=== PATIENT | male | born 1935 | race Caucasian/White ===

== ENCOUNTER → 2017-06-29 | Outpatient (CLI) | payer MEDICARE ==
[~2017-06-29] MED LIST: ADVA250A INH; ALBUAER3 INH; ASPI325T PO; CHLO.12%30 SWISH-SPIT; CLOB-23 TOPICAL; CLON0.5T PO; FLUO0.0122 EACH EAR; HYDR-3516 PO; MECL-62 PO; META48.53 PO; MODU550 PO; MONT10TA2 PO; NAPR500T PO; NITR0.4S SL; PRIL20TA2 PO; SIMV20TA PO; TAMS0.4C4 PO; VERA1TAB17 PO
[2017-06-29 11:04] LABS: BLOOD, URINE NEG (NEG); GLUCOSE,URINE NEG (NEG); KETONE, URINE NEG (NEG); NITRITE,URINE NEG (NEG); URINE COLOR YELLOW (YELLW/STRAW)
[2017-06-29 11:06] LABS: AUTOMATED NEUTROPHIL # 5.6 TH/MM3 (1.8-7.7); BASOPHIL # 0.1 TH/MM3 (0-0.2); BASOPHIL % 0.7 % (0.0-2.0); EOSINOPHIL # 0.1 TH/MM3 (0-0.4); EOSINOPHIL % 1.1 % (0.0-4.0); HEMATOCRIT 44.1 % (39.0-51.0); HEMO FLAGS DIFF FINAL; LYMPH % 12.1 % (9.0-44.0); MEAN CELL VOLUME 91.5 FL (80.0-100.0); MEAN CORPUSCULAR HEMOGLOBIN 31.6 PG (27.0-34.0); MEAN CORPUSCULAR HGB CONC 34.6 % (32.0-36.0); MONO % 16.3 % (0.0-8.0); NEUT % 69.8 % (16.0-70.0); PLATELET COUNT 256 TH/MM3 (150-450); RED BLOOD COUNT 4.82 MIL/MM3 (4.50-5.90); RED CELL DISTRIBUTION WIDTH 13.1 % (11.6-17.2); WHITE BLOOD COUNT 8.1 TH/MM3 (4.0-11.0)
[2017-06-29 11:06] LABS: COMMENT (UR) CULT NOT INDICATED; CULTURE IF INDICATED CULT NOT INDICATED
[2017-06-29 11:11] LABS: PROTHROMBIN TIME - PATIENT 11.2 SEC (9.8-11.6)
[2017-06-29 11:30] LABS: BICARBONATE 31.8 MEQ/L (21.0-32.0); POTASSIUM 4.5 MEQ/L (3.5-5.1)
--- NOTE | 2017-06-29 12:48 | RADRPT ---
EXAM DATE/TIME: 06/29/2017 11:05 [facility] COMPARISON: No previous studies available for comparison. INDICATIONS : Evaluate for pneumonia, pneumothorax or communicable disease. Pre op right shoulder surgery. MEDICAL HISTORY : None. SURGICAL HISTORY : None. ENCOUNTER: Initial ACUITY: 1 day PAIN SCORE: 0/10 LOCATION: Bilateral chest FINDINGS: PA and lateral views of the chest demonstrate the lungs to be symmetrically aerated without evidence of mass, infiltrate or effusion. Mild elevation of the right hemidiaphragm with minimal associated at electasis. The cardiomediastinal contours are unremarkable. Osseous structures are intact. CONCLUSION: 1. Mild elevation of the right hemidiaphragm with minimal associated atelectasis. 2. No acute infiltrate or effusion. Pako Mabry Jr., MD on June 29, 2017 at 12:46 Board Certified Radiologist. This report was verified electronically.
== END ==
LOC: CPRE 09:48
PROVIDERS: ATTEND Orthopaedic Surgery
DX: Z01.812 Encounter for preprocedural laboratory examination (principal); M19.011 Primary osteoarthritis, right shoulder
CPT/HCPCS: 36415; 71020; 80048; 81001; 85025; 85610

== ENCOUNTER 2017-07-12 05:53 | Inpatient (IN) | payer MEDICARE ==
--- NOTE | 2017-07-06 12:29 | MH ---
cc: JOE NEVILLE MD DATE OF ADMISSION 07/12/2017 ADMITTING DIAGNOSIS Severe osteoarthritis of the right glenohumeral joint, a partial thickness rotator cuff tear of the right shoulder, pain right shoulder, comorbidity use including asthma, hypertension, elevated cholesterol and psoriasis. HISTORY The patient is an 82-year-old white male who has had a lengthy history of pain involving his right shoulder area. His history dates back to approximately 1955 when he was participating in baseball activities and as he was diving into [employer] base, he sustained a jamming stress to his right shoulder and the onset of pain being noted. At that time, no specific treatment was completed, but over the several month interval of time thereafter, the patient did undergo orthopedic evaluation in the [place] area and was encouraged to conform to a rehabilitation program. Approximately one year following his initial injury, he sustained a dislocation of his right shoulder secondary to football. He reports that his cheerleading coach manipulated his shoulder back into place at that time, but over the following years he experienced several recurrent dislocations of the shoulder that did result in subsequently undergoing operative intervention in 1982 as completed at [facility] in [place], [place]. The patient was uncertain with regards to the actual procedure completed at that time, but did note that no further dislocations occurred. He was doing reasonably well for number of years thereafter until the past two more years when he began to note a catching sensation about the shoulder area associated with pain that became more pronounced with the passage of time. He was taking Naprosyn as prescribed by his primary care physician and did subsequently undergo orthopedic evaluation with the undersigned physician in November 2014. At that time, his x-ray studies revealed obvious degenerative change with near [id number] apposition about the glenohumeral joint for which findings and treatment options were reviewed. The patient did not feel that he was in need of any operative intervention and thus elected to continue with conservative management being followed on an outpatient basis. He did attend a course of physical therapy that he did find to be of some benefit, although being aware of some lingering soreness about the shoulder area and thus he felt comfortable continuing with conservative modalities which included taking Naprosyn and utilizing Aspercreme or Biofreeze on a as needed basis. He returned to the office in May of this year reporting that with the passage of time he was becoming progressively more symptomatic with pain about the shoulder area. He had undergone a CT scan evaluation which identified moderate to severe glenohumeral joint osteoarthritis and a small partial thickness tear involving the anterior portion of the subscapularis tendon. The patient was having difficulty conforming to all activities of daily living because of the shoulder symptoms, especially with trying to use the toilet. He felt he had arrived at a point in time where he was ready to consider a more definitive course of treatment. Involvement of reverse shoulder arthroplasty was outlined in detail for which the patient indicated his full understanding and expressed his desire to proceed accordingly. In compliance with his wishes, he has currently been scheduled for admission in order that the above be accomplished. PAST MEDICAL HISTORY Hospitalizations and surgeries have included: 1. Umbilical herniorrhaphy 2. Surgery of his right shoulder for recurrent dislocation as described 3. Tonsillectomy 4. Colonoscopy 5. Cystoscopy 6. Some type of a thermal procedure for prostate disease 7. 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 8. He has also undergone previous hospitalization and management for osteomyelitis of his right forearm. His medical illnesses include: 1. Asthma 2. Hypertension 3. Enlarged prostate 4. Psoriasis MEDICATIONS current medications: 1. Advair discus 250/50 two puffs daily 2. Amiloride Hydrochlorothiazide 5-50 one tablet twice daily 3. Verapamil ER 240 mg daily 4. Prilosec 20.6 mg daily 5. Naproxen 500 mg twice daily 6. Tamsulosin 0.4 mg twice daily 7. Clonazepam 0.5 mg p.r.n. 8. Simvastatin 20 mg daily 9. ProAir inhaler 90 mcg two puffs p.r.n. 10. Meclizine 25 mg three times p.r.n. 11. Fluocinolone 0.01% eardrops p.r.n. 12. Clobetasol 0.05% to the scalp twice daily 13. Nitrostat 0.4 mg p.r.n. 14. Ketoconazole shampoo 2% p.r.n. 15. Chlorhexidine oral rinse p.r.n. 16. Montelukast 10 mg daily 17. Metamucil fiber one tablespoon daily 18. Flonase and Zyrtec p.r.n. ALLERGIES The patient denies any known drug allergies. He has environmental allergies to dust and mites. REVIEW OF SYSTEMS He does wear glasses. Denies headache, seizure or syncope, but has had a history of dizziness. Diminished auditory acuity for which hearing aids have been utilized. No tinnitus. No bleeding gums or dysphagia. Denies cough, shortness of breath, upper respiratory infection. There is a history of pneumonia. No angina or heart disease. He is medically managed for hypertension. His appetite is good. He does have occasional constipation for which he utilizes prune juice. No hepatitis, gallbladder disease or ulcers. There is a positive history of hemorrhoids and diverticulitis. No urinary tract infection. No kidney stones. History of benign prostatic hypertrophy, fracture of the right wrist treated by cast immobilization. No psychiatric illness. His remaining review of systems is unremarkable and noncontributory. FAMILY HISTORY 58 years, is 79 years of age and described as being in good health. One son and one daughter indicated to be in good health. Family history is positive for hypertension, diabetes, heart disease, lung and colon cancer. SOCIAL HISTORY The patient has been retired for over 17 years having worked as a [employer]. He completed a BS college degree. Denies active use of tobacco and ethanol. PHYSICAL EXAMINATION Height 5 feet 8 inches, weight 211 pounds. GENERAL: An alert, oriented and responsive 82-year-old white male who sits quietly upon examination table with no obvious distress. HEAD, EYES, EARS, NOSE, AND THROAT: Pupils are equally round and reactive to light. Extraocular movements full. Sclerae clear. External nares clear. External auditory canals clear. Dental intact. Mucous membranes pink and moist. Pharynx clear. NECK: Supple. There is an active range of motion with mild discomfort at the extremes of mobility indicated to be chronic in nature. Carotid pulse bilaterally. Trachea midline. Thyroid without enlargement. LUNGS: Clear to auscultation and percussion. No CVA tenderness. No discomfort throughout the dorsal lumbar spine. HEART: Regular irregular rhythm with grade 3/6 systolic murmur heard best of the left second intercostal space. ABDOMEN: Soft, nontender. Bowel sounds are present. RECTAL: Per primary care physician. EXTREMITIES: Right shoulder, there is tenderness about the superior and anterior aspect of the right shoulder, limited mobility of the shoulder joint in all ranges assessed with pain associated at the extremes of motion and the patient unable to elevate his hand above his head level. Forward flexion is limited to no more than 45 degrees, extension 30 degrees, internal rotation to the lateral waist level. Cross-arm positioning of right hand onto the left shoulder is limited at the inferior aspect of the shoulder joint. Pain with passive manipulation of the right shoulder with obvious crepitation elicited in the 30-45 degrees range of abduction maneuvering. Drop arm test positive. [employer] Supervisor strength intact. Sensory intact. NEUROLOGIC: Cranial nerves II-XII grossly intact excluding diminished auditory acuity. IMPRESSION Severe osteoarthritis of the right glenohumeral joint, partial-thickness rotator cuff tear right shoulder, pain right shoulder, comorbidity us including asthma, hypertension, elevated cholesterol and psoriasis. PLAN Right reverse shoulder arthroplasty. The nature of the planned surgical procedure, the potential complications and risks associated, the expectations of surgery and the consent form were thoroughly reviewed with the patient prior to admission to the hospital. Fred has indicated his full understanding regarding all of the above and given consent to proceed with treatment as outlined. Medical evaluation and clearance for surgery completed by his primary care physician Dr. Awa Greenwood. MD LAZARA Huffman/DILSHAD /11:53 AM /12:10 PM
[~2017-07-12] VITALS: Ht 175.3 cm; Wt 80.6 kg
[~2017-07-12 05:53] MED LIST changes: -ASPI325T PO; -HYDR-3516 PO
[2017-07-12] MEDS ORDERED: BUPIVACAINE LIPOSOME PF 1.3% 20 ML VIAL ONE (06:22)
[2017-07-12] MEDS ORDERED: INSULIN HUMAN REGULAR 1,000 UNITS/10 ML VIAL SQ PRN (06:30)
[2017-07-12] MEDS ORDERED: METOPROLOL TARTRATE 25 MG TAB PO PRN (06:30)
[2017-07-12] MEDS ORDERED: ceFAZolin 2 GM PREMIX 50 ML IV SCH (06:30)
[2017-07-12] MEDS ORDERED: POVIDONE IODINE 7.5% SCRUB 118 ML BOTTLE TOPICAL SCH (06:30)
[2017-07-12] MEDS ORDERED: LACTATED RINGER'S 1000 ML IV PRN (06:30)
[2017-07-12] MEDS ORDERED: SODIUM CHLORID 0.9% 500 ML IV PRN (06:30)
[2017-07-12] MEDS ORDERED: TRANEXAMIC ACID 1 GM PRIOR TO PROCEDURE IV SCH ×2 (06:30)
[2017-07-12] MEDS ORDERED: POVIDONE IODINE 5% (ANTISEPSIS KIT) 4 APPLICATIONS EACH NARE PRN (06:30)
[2017-07-12] MEDS ORDERED: CHLORHEXIDINE GLUCONATE 2 % 1 PACK (2 CLOTHS) TOPICAL PRN (06:30)
[2017-07-12] MEDS ORDERED: ceFAZolin INJ 1,000 MG VIAL ONE (09:19)
[2017-07-12] MEDS ORDERED: TRANEXAMIC ACID 1 GM POST-OP IV SCH ×2 (09:30)
[2017-07-12] MEDS ORDERED: PHENYLEPH/NS 1000 MCG/10 ML SYR IV ONE (12:00)
[2017-07-12] MEDS ORDERED: MORPHINE SULFATE 4 MG/ML INJ IV ONE (12:00)
[2017-07-12] MEDS ORDERED: ePHEDrine/NS 25 MG/5 ML SYR IV ONE (12:00)
[2017-07-12] MEDS ORDERED: NEOSTIGMINE 3 MG/3 ML SYR IV ONE (12:00)
[2017-07-12] MEDS ORDERED: ONDANSETRON HCL 4 MG/2 ML VIAL IV PUSH ONE (12:00)
[2017-07-12] MEDS ORDERED: PHENYLEPHRINE HCL 10 MG/ML VIAL IV ONE (12:00)
[2017-07-12] MEDS ORDERED: PROPOFOL 200 MG/20 ML AMP IV ONE (12:00)
[2017-07-12] MEDS ORDERED: SODIUM CHLOR 0.9% 250 ML INJ 250 ML IV ONE (12:00)
[2017-07-12] MEDS ORDERED: LACTATED RINGER'S 1000 ML INJ 1,000 ML IV ONE (12:00)
[2017-07-12] MEDS ORDERED: DO NOT ADM ANY ANTICOAGULANT DRUGS PRN (13:46)
[2017-07-12] MEDS ORDERED: *morphine SULFATE 8 MG/ML PERIprocedure ONLY ONE (13:52)
[2017-07-12] MEDS ORDERED: SODIUM CHLORIDE 0.9% FLUSH 5 ML FLUSH IVF PRN (14:00)
[2017-07-12] MEDS ORDERED: ACETAMINOPHEN 325 MG TAB PO PRN (14:00)
[2017-07-12] MEDS ORDERED: BISACODYL 10 MG SUPP RECTAL PRN (14:00)
[2017-07-12] MEDS ORDERED: MORPHINE SULFATE 30 MG/30 ML PCA IV SCH (14:00)
[2017-07-12] MEDS ORDERED: Post-op Orders (for Pharmacy) MISC XX ONE (14:00)
[2017-07-12] MEDS ORDERED: NALOXONE HCL 0.4 MG/ML AMP IV PRN (14:00)
[2017-07-12] MEDS ORDERED: ACETAMINOPHEN/HYDROcodone 325 MG/5 MG TAB PO PRN ×2 (14:00)
[2017-07-12] MEDS ORDERED: ZOLPIDEM TARTRATE 5 MG TAB PO PRN (14:00)
[2017-07-12] MEDS: PCA - TOTAL MG MORPHINE DELIVERED PER SHIFT SCH ×2 (14:00→22:00)
[2017-07-12] MEDS ORDERED: MISCELLANEOUS PHARMACY INFORMATION XX ONE (14:00)
[2017-07-12] MEDS: DEXT 5%-NACL 0.45% 1000 ML INJ 1,000 ML IV SCH ×2 (14:10→23:24)
--- NOTE | 2017-07-12 14:15 | RADRPT ---
EXAM DATE/TIME: 07/12/2017 14:05 [facility] COMPARISON: No previous studies available for comparison. INDICATIONS : Post op right shoulder. MEDICAL HISTORY : None. SURGICAL HISTORY : None. ENCOUNTER: Initial ACUITY: 1 day PAIN SCORE: 10/10 LOCATION: Right shoulder. FINDINGS: Status post total shoulder arthroplasty. Prosthesis is well seated. Alignment anatomic. Minimal ai r is present in the joint capsule. CONCLUSION: Anatomic alignment without fracture. Zack Mtz MD FACR on July 12, 2017 at 14:13 Board Certified Radiologist. This report was verified electronically.
[2017-07-12 15:28] VITALS: BP 135/70; PULSE 78; RESP 19; TEMP 95.5; O2SAT 95
--- NOTE | 2017-07-12 17:46 | PD.CONS ---
HPI Service [facility] Hospitalists Consult Requested By Dr. Hernandes Reason for Consult Medical management Primary Care Physician Awa Greenwood MD Diagnoses: History of Present Illness Written by Catherine Nixon, acting as scribe for Dr. Gutiérrez on 07/12/17 at 17:36. Mr. Walton is an 82-year-old male patient with a known medical history of severe osteoarthritis of the right shoulder, hypertension, asthma, enlarged prostate and psoriasis who underwent a right reverse shoulder arthroplasty today by Dr. Hernandes. Hospitalist team has been consulted for medical management. Patient seen and examined post operatively. Somewhat groggy from anesthesia and poor historian at this time, daughter in law at bedside able to provide some of the medical history including use of the EMR. Per medical records patient has suffered from severe osteoarthritis of the right glenohumeral joint with partial-thickness rotator cuff tear and pain for many years now roughly since 1955 during sport activities. Patient has attempted conservative management for his right shoulder including NSAIDs, physical therapy with some relief, and Aspercreme/Biofreeze treatment. Per daughter in law he is a relatively healthy individual. Compliant with medications. Has a history of asthma and uses his inhalers rarely, well controlled. Denies any recent fever, chills, cough, shortness of breath, ab pain, nausea, vomiting, diarrhea or dysuria. Review of Systems Musculoskeletal: COMPLAINS OF: Joint pain (right shoulder) Except as stated in HPI: all other systems reviewed are Neg Past Family Social History Allergies: Coded Allergies: Milk Containing Products (Verified Adverse Reaction, Severe, Swelling, ) Past Medical History Asthma Hypertension Enlarged prostate Psoriasis Past Surgical History Surgery of his right shoulder for recurrent dislocation Tonsillectomy Colonoscopy Cystoscopy Excision of a benign tumor of his left leg Reported Medications Reported Meds & Active Scripts Active Reported Metamucil Original Texture (Psyllium Hydrophilic Mucilloid) 3.4 Gram/7 Gram Pow 1 Scoop PO TID PRN 1 rounded TEASPOON in 8 oz of liquid at the first sign of irregularity. [place] Scalp Topical (Clobetasol Propionate) 0.05% Soln 1 Applic TOPICAL BID Meclizine (Meclizine HCl) 25 Mg Tab 25 Mg PO TID PRN Proair Hfa 8.5 GM Inh (Albuterol Sulfate) 90 Mcg/Act Aer 2 Puff INH Q4-6H PRN 108 mcg/actuation Simvastatin 20 Mg Tab 20 Mg PO HS Clonazepam 0.5 Mg Tab 0.5 Mg PO HS Tamsulosin (Tamsulosin HCl) 0.4 Mg Cap 0.4 Mg PO BID Naproxen 500 Mg Tab 500 Mg PO DAILY Prilosec (Omeprazole Magnesium) 20 Mg Tab 1 Tab PO DAILY Verapamil ER 24 HR (Verapamil HCl) 240 Mg Tab 240 Mg PO DAILY Advair Diskus Inh (Fluticasone-Salmeterol Inh) 250-50 Mcg/Blist Aer 2 Puff INH BID Rinse mouth after use. Amiloride-Hydrochlorothiazide (Amiloride/HCTZ) 5-50 Mg Tab 1 Tab PO BID Give with food. Singulair (Montelukast Sodium) 10 Mg Tab 10 Mg PO HS Active Ordered Medications Current Medications Medications (Trade) Dose Ordered Sig/Jonelle Route Start Time Stop Time Status Last Admin (Betadine 7.5% Scrub) 1 applic ONCE TOPICAL 07/12/17 06:30 07/15/17 06:29 Cefazolin Sodium/ Dextrose 50 ml @ 100 mls/hr AUTO PARKER IV 07/12/17 06:30 07/15/17 06:29 07/12/17 08:09 Lactated Ringer's 1,000 ml @ 30 mls/hr Q24H PRN IV 07/12/17 06:30 07/15/17 06:29 Sodium Chloride 500 ml @ 30 mls/hr [id number] PRN IV 07/12/17 06:30 07/15/17 06:29 (Lopressor) 25 mg AUTO PARKER PRN PO 07/12/17 06:30 07/15/17 06:29 (Betadine 5% Antisepsis Kit) 1 applic AUTO PARKER PRN EACH NARE 07/12/17 06:30 07/15/17 06:29 07/12/17 08:05 (Chlorhexidine 2% Cloth) 3 pack AUTO PARKER PRN TOPICAL 07/12/17 06:30 07/15/17 06:29 07/12/17 07:51 (NovoLIN R INJ) See Protocol Table ... AUTO PARKER PRN SQ 07/12/17 06:30 07/15/17 06:29 Dextrose/Sodium Chloride 1,000 ml @ 125 mls/hr Q8H IV 07/12/17 13:49 07/12/17 14:10 (NS Flush) 2 ml UNSCH PRN IVF 07/12/17 14:00 (NS Flush) 2 ml BID IVF 07/12/17 21:00 Cefazolin Sodium 1000 mg/Sodium Chloride 100 ml @ 200 mls/hr Q6H IV 07/12/17 18:00 07/13/17 06:29 07/12/17 17:37 (Xarelto) 10 mg Q24H PO 07/13/17 14:00 ([place] 5-325 Mg) 1 tab Q4H PRN PO 07/12/17 14:00 ([place] 5-325 Mg) 2 tab Q4H PRN PO 07/12/17 14:00 (Tylenol) 650 mg Q6H PRN PO 07/12/17 14:00 (Zofran Inj) 4 mg Q6H PRN IVP 07/12/17 14:00 (Ambien) 5 mg HS PRN PO 07/12/17 14:00 (Dulcolax Supp) 10 mg DAILY PRN RECTAL 07/12/17 14:00 (Narcan Inj) 0.4 mg UNSCH PRN IV 07/12/17 14:00 (Morphine 1 Mg/ ml [employer] UMP[employer]) 30 mg UNSCH IV 07/12/17 14:00 07/14/17 13:59 07/12/17 15:47 [employer] LEAG[employer] UMPIRE Dosage Infused (Pha) 1 Q8HR .XX 07/12/17 14:00 07/12/17 14:00 Miscellaneous Information ALL NURSING DEPARTME... UNSCH PRN .XX 07/12/17 13:46 07/13/17 13:45 (Proair Hfa Inh) 2 puff BID PRN INH 07/12/17 18:00 UNV (Moduretic 5-50 Mg) 1 tab BID PO 07/12/17 21:00 UNV (Antivert) 25 mg TID PRN PO 07/12/17 18:00 UNV (Singulair) 10 mg HS PO 07/12/17 21:00 UNV (Flomax) 0.4 mg BID PO 07/12/17 21:00 UNV (Isoptin Sr) 240 mg DAILY PO 07/13/17 09:00 UNV Non-Formulary Medication 2 puff BID INH 07/12/17 21:00 UNV Non-Formulary Medication 1 tab DAILY PO 07/13/17 09:00 UNV Non-Formulary Medication 20 mg HS PO 07/12/17 21:00 UNV (KlonoPIN) 0.5 mg HS PO 07/12/17 21:00 UNV (Albuterol Neb) 2.5 mg Q4HR NEB PRN NEB 07/12/17 18:00 UNV Family History Obtained from medical records since patient groggy per surgery: 58 years , is 79 years of age and described as being in good health. One son and one daughter indicated to be in good health. Family history is positive for hypertension, diabetes, heart disease, lung and colon cancer. 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 He completed a BS college degree. Denies active use of tobacco and ethanol. Physical Exam Vital Signs Vital Signs Date Time Temp Pulse Resp B/P (MAP) Pulse Ox O2 Delivery O2 Flow Rate FiO2 07/12/17 15:47 16 07/12/17 15:28 95.5 78 19 135/70 (91) 95 07/12/17 15:00 72 19 128/67 (87) 95 Nasal Cannula 4 07/12/17 14:45 69 19 127/63 (84) 94 Nasal Cannula 4 07/12/17 14:30 68 19 130/65 (86) 94 Nasal Cannula 4 07/12/17 14:15 67 19 135/65 (88) 94 Nasal Cannula 4 07/12/17 14:00 70 19 124/58 (80) 92 Nasal Cannula 4 07/12/17 13:45 98.0 77 19 133/85 (101) 97 Nasal Cannula 4 07/12/17 07:29 97.0 56 20 142/70 (94) 96 Physical Exam GENERAL: This is a well-nourished, well-developed patient, post operative, groggy. Awake and oriented x 3. In no apparent distress. SKIN: No rashes, ecchymoses or lesions. Warm and dry. Right shoulder dressing in place, clean, d/i. HEENT: Atraumatic. Normocephalic. Pupils equal round and reactive. Extraocular motions intact. No scleral icterus. No injection or drainage. Nose without bleeding. Airway patent. NECK: Trachea midline. No JVD. Supple. CARDIOVASCULAR: Regular rate and rhythm without murmurs, gallops, or rubs. RESPIRATORY: Clear to auscultation. Breath sounds equal bilaterally. No wheezes , rales, or rhonchi. GASTROINTESTINAL: Abdomen soft, non-tender, nondistended. No guarding. MUSCULOSKELETAL: Extremities without clubbing, cyanosis, or edema. No joint tenderness, effusion, or edema noted. NEUROLOGICAL: Awake and oriented x 3. Cranial nerves II through XII intact. Motor and sensory grossly within normal limits. Five out of 5 muscle strength in all muscle groups. Normal speech. Imaging Last Impressions Shoulder X-Ray 07/12/17 0000 Signed Impressions: Service Date/Time: Wednesday, July 12, 2017 14:05 - CONCLUSION: Anatomic alignment without fracture. Zack Mtz MD FACR Assessment and Plan Assessment and Plan Mr. Walton is an 82-year-old male patient with a known medical history of severe osteoarthritis of the right shoulder, hypertension, asthma, enlarged prostate and psoriasis who underwent a right reverse shoulder arthroplasty today by Dr. Hernandes. Hospitalist team has been consulted for medical management. Status post right reverse should arthroplasty - Post op day 0, 07/12/17 - Dressing changes managed per orthopedic team. - OT ordered, eval and treat. - Monitor for fever, afebrile at this time. - Control nausea, Zofran PRN available. - Control PRN, Morphine IV [employer] UMPIRE. [place] PO PRN per pain sclae. - Monitor for BM post surgery. Dulcolax suppository PRN constipation. - HH ordered for tomorrow. Follow. Asthma, chronic: Continue home inhalers. Place on albuterol nebs PRN shortness of breath. Supplemental O2 to keep sats >92%. Hypertension, chronic: Continue home medications, Amiloride/HCTZ 1 tab PO BID, and Verapamil. Monitor BP closely. BPH: Continue home Tamsulosin. DVT prophylaxis: SCDs/Xarelto. Thank you for this consult, will follow with you. This note was transcribed by yvonne [Axel]. I, Dr. April Gutiérrez personally performed the history, physical exam, and medical decision making; and confirmed the accuracy of the information in the transcribed note. Authenticated by Dr. April Gutiérrez on 07/12/17 at 19:39. Catherine Nixon Jul 12, 2017 17:46 April Gutiérrez MD Jul 12, 2017 19:39
[2017-07-12] MEDS ORDERED: RESP: ALBUTEROL 2.5 MG/3 ML NEB (PRN) NEB (18:00)
[2017-07-12] MEDS ORDERED: MECLIZINE HCL 25 MG TAB PO PRN (18:00)
[2017-07-12] MEDS ORDERED: ALBUTEROL SULFATE 90 MCG/ACT HFA 18 GM INHALER INH PRN (18:45)
[2017-07-12 19:15] VITALS: BP 138/57; PULSE 83; RESP 18; TEMP 96.9; O2SAT 96
[2017-07-12] MEDS: SODIUM CHLORIDE 0.9% FLUSH 5 ML FLUSH IVF SCH (21:00)
[2017-07-12] MEDS: MONTELUKAST SODIUM 10 MG TAB PO SCH (22:17)
[2017-07-12] MEDS: aMILoride/HCTZ 5 MG/50 MG TAB PO SCH (22:17)
[2017-07-12] MEDS: PRAVASTATIN SOD 40 MG TAB PO SCH (22:18)
[2017-07-12] MEDS: clonazePAM 0.5 MG TAB PO SCH (22:18)
[2017-07-12] MEDS: TAMSULOSIN HCL 0.4 MG CAP PO SCH (22:18)
[2017-07-12] MEDS: BUDESONIDE-FORMOTEROL 160/4.5 MCG INHALER INH SCH (22:20)
[2017-07-12 22:52] VITALS: O2SAT 95
[2017-07-12 23:36] VITALS: BP 131/72; PULSE 85; RESP 18; TEMP 97.1; O2SAT 95
[2017-07-13] VITALS (7 sets, daily range): BP systolic 119–141; BP diastolic 63–73; PULSE 69–82; RESP 17–18; TEMP 95.1–98.4; O2SAT 95–97
[2017-07-13] MEDS: PCA - TOTAL MG MORPHINE DELIVERED PER SHIFT SCH ×3 (06:00→21:38)
[2017-07-13 06:47] LABS: REVIEW FLAG FINAL
[2017-07-13] MEDS ORDERED: ASPI325T PO (07:39)
[2017-07-13] MEDS ORDERED: HYDR-3516 PO (07:39)
--- NOTE | 2017-07-13 07:43 | HHI.FF ---
Face to Face Verification Diagnosis: (1) DJD of right shoulder Physical Therapy Gait training Occupational Therapy Right UE Weight Bearing: WB as tolerated Right UE Range of Motion: Active ROM Additional Instructions limit external rotation to 45-60 degrees for initial six weeks following surgery then progress as tolerated Nursing Dressing Changes: Daily dressing change I have seen patient Fred Walton on 07/13/17. My clinical findings support the need for the requested home health care services because: Deconditioned w/ increased weakness Limited ability to care for self High risk of falls I certify that my clinical findings support that this patient is homebound because: Post-op weakness Unsteady gait/balance Unsafe to leave home unassisted Marc Hernandes MD Jul 13, 2017 07:43
[2017-07-13] MEDS: DEXT 5%-NACL 0.45% 1000 ML INJ 1,000 ML IV SCH ×3 (07:56→21:37)
[2017-07-13] MEDS: TAMSULOSIN HCL 0.4 MG CAP PO SCH ×2 (07:57→21:31)
[2017-07-13] MEDS: BUDESONIDE-FORMOTEROL 160/4.5 MCG INHALER INH SCH ×2 (07:57→21:31)
[2017-07-13] MEDS: PANTOPRAZOLE SOD 20 MG DELAYED RELEASE TAB PO SCH (07:57)
[2017-07-13] MEDS: VERAPAMIL HCL 240 MG SUSTAINED RELEASE TAB PO SCH (07:57)
[2017-07-13] MEDS: aMILoride/HCTZ 5 MG/50 MG TAB PO SCH ×2 (07:58→21:32)
[2017-07-13] MEDS: SODIUM CHLORIDE 0.9% FLUSH 5 ML FLUSH IVF SCH ×2 (07:58→21:00)
[2017-07-13] MEDS: ONDANSETRON HCL 4 MG/2 ML VIAL IVP PRN ×2 (09:12→15:44)
[2017-07-13 09:15] LABS: HEMO FLAGS AUTO DIFF; LYMPH % 2.4 % (9.0-44.0); LYMPHOCYTE # 0.4 TH/MM3 (1.0-4.8); MEAN CELL VOLUME 91.5 FL (80.0-100.0); MEAN CORPUSCULAR HEMOGLOBIN 30.7 PG (27.0-34.0); MEAN CORPUSCULAR HGB CONC 33.5 % (32.0-36.0); MONO % 13.7 % (0.0-8.0); NEUT % 83.9 % (16.0-70.0); PLATELET COUNT 228 TH/MM3 (150-450); RED BLOOD COUNT 4.38 MIL/MM3 (4.50-5.90); RED CELL DISTRIBUTION WIDTH 12.9 % (11.6-17.2); WHITE BLOOD COUNT 16.8 TH/MM3 (4.0-11.0)
[2017-07-13 09:54] LABS: NEUTROPHIL # MANUAL DIFF 14.8 TH/MM3 (1.8-7.7); POLYS (SEG NEUTROPHILS) 88 % (16-70); WBC DIFF SAMPLE 100
[2017-07-13 09:55] LABS: PLATELET ESTIMATE SMEAR NORMAL (NORMAL)
[2017-07-13 09:56] LABS: PLATELET MORPHOLOGY NORMAL (NORMAL); SCAN/DIFF FINAL DIFF MANUAL
[2017-07-13] MEDS ORDERED: ALUMINUM/MAGNESIUM/SIMETH 30 ML CUP PO PRN (11:00)
--- NOTE | 2017-07-13 11:41 | MP ---
cc: JOE HERNANDES M.D. DATE OF SURGERY: July 12, 2017 PREOPERATIVE DIAGNOSIS Severe osteoarthritis of the right glenohumeral joint, partial-thickness rotator cuff tear right shoulder, pain right shoulder. POSTOPERATIVE DIAGNOSIS Severe osteoarthritis of the right glenohumeral joint, partial-thickness rotator cuff tear right shoulder, pain right shoulder. PROCEDURE Right reverse shoulder arthroplasty. SURGEON Joe Hernandes MD ANESTHESIA General endotracheal. INDICATIONS An 82-year-old white male with a lengthy history of pain involving his right shoulder extending back to approximately 1955 while participating in baseball activities and diving into third base he sustained a jamming stress to his right shoulder with the onset of pain being noted. At that time no specific treatment was completed but over a several month interval of time the patient did undergo subsequent orthopedic evaluation and was encouraged to conform to a rehabilitation program. Approximately 1 year following his initial injury he sustained a dislocation of his right shoulder secondary to participation in football. His process coach manipulated his shoulder back into place, but over the following years he experienced several recurrent dislocations of the shoulder that did result in him subsequently undergoing an operative procedure in 1982 as completed at [facility] in [place], [place]. The patient was uncertain with regards to the actual procedure completed but did note no further dislocations occurred. He was doing reasonably well for a number of years thereafter until the past two or more years when he began to note a catching sensation about the shoulder area associated with pain that became more pronounced with the passage of time. He was taking Naprosyn as prescribed by his primary care physician and did undergo orthopedic evaluation with the undersigned physician in November of 2014. At that time his x-ray studies revealed obvious degenerative change with near [id number] apposition about the glenohumeral joint for which findings and treatment options were reviewed. The patient did not feel that he was in need of any operative intervention and elected to continue with conservative management while being followed on outpatient basis. He did attend a course of physical therapy that he did find to be of some benefit, although being aware of lingering soreness about the shoulder area, but he felt comfortable with continued conservative modalities which included taking Naprosyn and utilizing Aspercreme and Biofreeze on an as-needed basis. He returned to the office in May of this year reporting that with the passage of time he was becoming progressively more symptomatic with pain about the shoulder area. A CT scan had been completed which identified moderate to severe glenohumeral joint osteoarthritis and a small partial thickness tear involving the anterior portion of the subscapularis tendon. The patient described difficulty conforming to all activities of daily living because of the shoulder symptoms, especially in an attempt to use the toilet. He felt he had arrived at a point in time when he was ready to consider a more definitive course of treatment. The involvement of reverse shoulder arthroplasty was outlined in detail for which the patient indicated his full understanding and expressed his desire to proceed accordingly. In compliance with his wishes he was scheduled for admission at this time in order that the above be accomplished. FORMAT Following the induction of satisfactory general anesthesia by endotracheal intubation as completed per the Department of Anesthesia, the patient was positioned upon the operating table in a modified beach-chair configuration. The right shoulder and upper extremity proper was isolated with a U drape thereafter being prepped with Betadine solution and draped into a sterile field in the routine manner. Prior to initiation of the actual procedure the standard time-out protocol was completed, all parameters were appropriately addressed and confirmed by operating room personnel. A standard anterior approach to the shoulder was initiated through a sharp skin incision along the deltopectoral interval extending from the inferior margin of the clavicle to the axillary crease. The incision was developed to underlying subcutaneous tissue with hemostasis maintained by electrocautery. By deepening dissection the deltopectoral interval was identified. There was no evidence of a cephalic vein which was felt to possibly have been sacrificed at the time of his previous surgery. As the deltopectoral interval was developed considerable scar tissue was encountered with obvious subdeltoid adhesions. Sharp and digital dissection facilitated a release of the subdeltoid adhesions and with the shoulder maintained in a slightly externally rotated posture the biceps tendon was identified and resected proximally. A limited release of the pectoralis insertion was completed and the stump of the biceps tendon was tenodesed to the pectoralis stump itself. The excess portion of biceps tendon was removed. The three sessile circumflex vessels were clamped and coagulated. The subscapularis tendon was thereafter divided along the anatomical neck of the humerus with the more medial portion being tagged with #1 Tycron suture, as the humeral head was delivered into the room significant and severe degenerative changes were appreciated with complete deformity of the humeral head. A entry point was placed superiorly adjacent to the bicipital groove and entry into the humeral shaft was completed. Sequential rasping was accomplished from 7-15 mm. With the 15-mm broach in place the external guide was positioned and oriented approximately 30 degrees of retroversion facilitating resection of the humeral head. The guide apparatus was removed and broaching was accomplished thereafter through 15 mm. With the 15-mm broach in place the covering cap was positioned and attention was redirected to the glenoid. Retractors were placed posterior inferior, superior and anterior. There was considerable reaction and thickened scar tissue throughout the glenoid region which was sharply excised as was the residual stump of the biceps tendon and the superior and middle and inferior glenohumeral ligament. With the margins of the glenoid outlined hash farrell were placed from the 12 to 6 o'clock position and the 9 to 3 o'clock position allowing orientation of the central portion of the glenoid. A guide pin was thereafter placed at this target site with the 10 degree inferior glenoid tilt guide being placed. With the guide pin in place the step-down reamer was passed over the guide pin creating a central peg hole. Limited resection along the inferior margin of the glenoid of reactive bone was completed and thereafter a 25 mm glenosphere mini baseplate was firmly seated. Drill and depth measurement was accomplished. A 35 mm central screw was placed and peripheral locking screws followed thereafter with 25 mm screws being placed superior and inferior and 15-mm screws anterior and posterior. With the baseplate firmly seated a 36 mm glenosphere with maximum inferior offset was firmly seated onto the baseplate. Retractors were removed and attention was redirected to the proximal humerus. With the 15 mm trial femoral broach in place the trial reduction followed utilizing a 44-mm humeral tray with a 44 x 36-mm humeral bearing insert. The shoulder was reduced and carried through a passive range of motion with stability demonstrated throughout the arc of motion. An open dislocation was completed and thereafter the trial humeral components were removed. The canal was thoroughly irrigated and dried and thereafter a 15 mm mini humeral stem was firmly seated to which a 44-mm humeral tray with 44 x 36-mm humeral bearing insert attached and an open reduction completed and a repeat range of motion again noted stability as previously described. Final irrigation was accomplished, hemostasis being maintained. The subscapularis tendon was repaired with #1 Tycron suture which had been placed prior to insertion of the humeral stem. The wound was irrigated one more time and thereafter the deltopectoral interval was reapproximated with a running 0 Vicryl suture. The remaining portion of the wound was closed in layers in the routine manner. Skin margins being reapproximated with a running subcuticular 3-0 Vicryl suture over which Steri-Strips were applied. Xeroform gauze and a bulky dry sterile dressing were placed. The shoulder was supported in an arm sling. Anesthesia was discontinued. The patient thus transferred to a hospital bed and returned to the recovery room in satisfactory condition having tolerated his operative procedure well. Estimated blood loss was approximately 450 ccs as determined per anesthesia. All implants were of the [employer] entertainment lawyer. Joe Hernandes MD NBS/TLL /1:34 PM /11:05 AM
[2017-07-13] MEDS: RIVAROXABAN 10 MG TAB PO SCH (13:03)
--- NOTE | 2017-07-13 15:05 | HHI.PR ---
Subjective Remarks Patient in bed with his son and [id number] He had little difficulty passing urine this morning but now it's better He also complained of heartburn, he was prescribed Maalox and feels better he is on Prilosec l Objective Vitals Vital Signs Date Time Temp Pulse Resp B/P (MAP) Pulse Ox O2 Delivery O2 Flow Rate FiO2 07/13/17 11:44 95.1 79 17 138/73 (94) 95 07/13/17 11:09 95 21 07/13/17 07:51 98.1 82 17 119/63 (81) 95 07/13/17 06:00 18 07/13/17 04:19 97.6 74 18 123/67 (85) 97 07/12/17 23:36 97.1 85 18 131/72 (91) 95 07/12/17 22:52 95 Nasal Cannula 4.00 07/12/17 22:00 18 07/12/17 19:15 96.9 83 18 138/57 (84) 96 07/12/17 15:47 16 07/12/17 15:28 95.5 78 19 135/70 (91) 95 I/O 07/12/17 07/12/17 07/12/17 07/13/17 07/13/17 07/13/17 07:00 15:00 23:00 07:00 15:00 23:00 Intake Total 2160 ml 1441 ml 1466 ml 750 ml Output Total 4050 ml 700 ml 100 ml Balance -1890 ml 1441 ml 766 ml 650 ml Intake Oral 360 ml 480 ml 750 ml IV Total 2160 ml 1081 ml 986 ml Output Urine Total 150 ml 700 ml 100 ml Estimated Blood Loss 900 ml Other 3000 ml Bladder Scan Volume Amount 126 ml 126 ml # Voids 0 2 # Bowel Movements 0 0 Result Diagram: 07/13/17 0535 Objective Remarks GENERAL: This is a well-nourished, well-developed patient, post operative, groggy. Awake and oriented x 3. In no apparent distress. SKIN: No rashes, ecchymoses or lesions. Warm and dry. Right shoulder dressing in place, clean, d/i. HEENT: Atraumatic. Normocephalic. Pupils equal round and reactive. Extraocular motions intact. No scleral icterus. No injection or drainage. Nose without bleeding. Airway patent. NECK: Trachea midline. No JVD. Supple. CARDIOVASCULAR: Regular rate and rhythm without murmurs, gallops, or rubs. RESPIRATORY: Clear to auscultation. Breath sounds equal bilaterally. No wheezes , rales, or rhonchi. GASTROINTESTINAL: Abdomen soft, non-tender, nondistended. No guarding. MUSCULOSKELETAL: Extremities without clubbing, cyanosis, or edema. No joint tenderness, effusion, or edema noted. NEUROLOGICAL: Awake and oriented x 3. Cranial nerves II through XII intact. Motor and sensory grossly within normal limits. Five out of 5 muscle strength in all muscle groups. Normal speech. A/P Assessment and Plan 07/13: Leukocytosis WBC 16.9 mostly reactive postop, BMP for today still pending , will continue monitoring A/P Mr. Walton is an 82-year-old male patient with a known medical history of severe osteoarthritis of the right shoulder, hypertension, asthma, enlarged prostate and psoriasis who underwent a right reverse shoulder arthroplasty today by Dr. Hernandes. Hospitalist team has been consulted for medical management. Status post right reverse should arthroplasty - Post op day 0, 07/12/17 - Dressing changes managed per orthopedic team. - OT ordered, eval and treat. - Monitor for fever, afebrile at this time. - Control nausea, Zofran PRN available. 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 [place] PO PRN per pain sclae. - Monitor for BM post surgery. Dulcolax suppository PRN constipation. - HH ordered for tomorrow. Follow. Asthma, chronic: Continue home inhalers. Place on albuterol nebs PRN shortness of breath. Supplemental O2 to keep sats >92%. Hypertension, chronic: Continue home medications, Amiloride/HCTZ 1 tab PO BID, and Verapamil. Monitor BP closely. BPH: Continue home Tamsulosin. DVT prophylaxis: SCDs/Xarelto. April Gutiérrez MD Jul 13, 2017 15:05
[2017-07-13] MEDS: clonazePAM 0.5 MG TAB PO SCH (21:00)
[2017-07-13] MEDS: PRAVASTATIN SOD 40 MG TAB PO SCH (21:31)
[2017-07-13] MEDS: MONTELUKAST SODIUM 10 MG TAB PO SCH (21:32)
[2017-07-14 04:44] LABS: BICARBONATE 28.1 MEQ/L (21.0-32.0); POTASSIUM 3.3 MEQ/L (3.5-5.1)
[2017-07-14] MEDS: DEXT 5%-NACL 0.45% 1000 ML INJ 1,000 ML IV SCH ×3 (04:44→21:49)
[2017-07-14] MEDS: PCA - TOTAL MG MORPHINE DELIVERED PER SHIFT SCH ×3 (04:44→22:00)
[2017-07-14 07:32] LABS: AUTOMATED NEUTROPHIL # 10.9 TH/MM3 (1.8-7.7); BASOPHIL % 0.1 % (0.0-2.0); EOSINOPHIL % 0.1 % (0.0-4.0); HEMATOCRIT 33.4 % (39.0-51.0); LYMPH % 7.4 % (9.0-44.0); LYMPHOCYTE # 1.1 TH/MM3 (1.0-4.8); MEAN CELL VOLUME 90.2 FL (80.0-100.0); MEAN CORPUSCULAR HEMOGLOBIN 31.1 PG (27.0-34.0); MEAN CORPUSCULAR HGB CONC 34.4 % (32.0-36.0); MONO % 20.6 % (0.0-8.0); NEUT % 71.8 % (16.0-70.0); PLATELET COUNT 189 TH/MM3 (150-450); RED CELL DISTRIBUTION WIDTH 12.9 % (11.6-17.2); WHITE BLOOD COUNT 15.2 TH/MM3 (4.0-11.0)
[2017-07-14 07:49] LABS: BICARBONATE 26.7 MEQ/L (21.0-32.0); POTASSIUM 3.3 MEQ/L (3.5-5.1)
[2017-07-14 08:00] VITALS: BP 130/65; PULSE 70; RESP 18; TEMP 96.9; O2SAT 96
[2017-07-14 08:11] LABS: HEMO FLAGS AUTO DIFF
[2017-07-14] MEDS: SODIUM CHLORIDE 0.9% FLUSH 5 ML FLUSH IVF SCH ×2 (09:00→20:44)
[2017-07-14] MEDS: BUDESONIDE-FORMOTEROL 160/4.5 MCG INHALER INH SCH ×2 (09:17→20:41)
[2017-07-14] MEDS: VERAPAMIL HCL 240 MG SUSTAINED RELEASE TAB PO SCH (09:17)
[2017-07-14] MEDS: aMILoride/HCTZ 5 MG/50 MG TAB PO SCH ×2 (09:18→20:43)
[2017-07-14] MEDS: TAMSULOSIN HCL 0.4 MG CAP PO SCH ×2 (09:18→20:44)
[2017-07-14] MEDS: PANTOPRAZOLE SOD 20 MG DELAYED RELEASE TAB PO SCH (09:18)
[2017-07-14 09:25] VITALS: O2SAT 96
[2017-07-14 09:38] LABS: NEUTROPHIL # MANUAL DIFF 12.8 TH/MM3 (1.8-7.7); PLATELET ESTIMATE SMEAR NORMAL (NORMAL); PLATELET MORPHOLOGY NORMAL (NORMAL); POLYS (SEG NEUTROPHILS) 84 % (16-70); SCAN/DIFF FINAL DIFF MANUAL; WBC DIFF SAMPLE 100
[2017-07-14 12:00] VITALS: BP 130/70; PULSE 76; RESP 18; TEMP 97.1; O2SAT 93
[2017-07-14] MEDS: RIVAROXABAN 10 MG TAB PO SCH (14:00)
--- NOTE | 2017-07-14 14:50 | HHI.PR ---
Subjective Remarks patient stated he is doing better today, no dysuria, UA still pending Leukocytosis slightly dropped to 15 K, still mostly thinking of postop reaction Objective Vitals Vital Signs Date Time Temp Pulse Resp B/P (MAP) Pulse Ox O2 Delivery O2 Flow Rate FiO2 07/14/17 12:00 97.1 76 18 130/70 (90) 93 07/14/17 09:25 96 21 07/14/17 08:00 96.9 70 18 130/65 (86) 96 07/13/17 23:48 97.0 73 18 126/63 (84) 97 07/13/17 19:06 98.4 69 18 141/69 (93) 97 07/13/17 15:49 96.9 77 17 140/68 (92) 95 I/O 07/13/17 07/13/17 07/13/17 07/14/17 07/14/17 07/14/17 07:00 15:00 23:00 07:00 15:00 23:00 Intake Total 1466 ml 750 ml 480 ml 480 ml Output Total 700 ml 100 ml 850 ml Balance 766 ml 650 ml 480 ml -370 ml Intake Oral 480 ml 750 ml 480 ml 480 ml IV Total 986 ml Output Urine Total 700 ml 100 ml 850 ml # Voids 2 2 # Bowel Movements 0 0 0 Result Diagram: 07/14/1761607/14/17616 Objective Remarks GENERAL: This is a well-nourished, well-developed patient, post operative, groggy. Awake and oriented x 3. In no apparent distress. SKIN: No rashes, ecchymoses or lesions. Warm and dry. Right shoulder dressing in place, clean, d/i. HEENT: Atraumatic. Normocephalic. Pupils equal round and reactive. Extraocular motions intact. No scleral icterus. No injection or drainage. Nose without bleeding. Airway patent. NECK: Trachea midline. No JVD. Supple. CARDIOVASCULAR: Regular rate and rhythm without murmurs, gallops, or rubs. RESPIRATORY: Clear to auscultation. Breath sounds equal bilaterally. No wheezes , rales, or rhonchi. GASTROINTESTINAL: Abdomen soft, non-tender, nondistended. No guarding. MUSCULOSKELETAL: Extremities without clubbing, cyanosis, or edema. No joint tenderness, effusion, or edema noted. NEUROLOGICAL: Awake and oriented x 3. Cranial nerves II through XII intact. Motor and sensory grossly within normal limits. Five out of 5 muscle strength in all muscle groups. Normal speech. A/P Assessment and Plan 07/13: Leukocytosis WBC 16.9 mostly reactive postop, BMP for today still pending , will continue monitoring 07/14: Leukocytosis decreased to 15 K mostly reactive to stop, no dysuria, UA pending A/P Mr. Walton is an 82-year-old male patient with a known medical history of severe osteoarthritis of the right shoulder, hypertension, asthma, enlarged prostate and psoriasis who underwent a right reverse shoulder arthroplasty today by Dr. Hernandes. Hospitalist team has been consulted for medical management. Status post right reverse should arthroplasty - Post op day 0, 07/12/17 - Dressing changes managed per orthopedic team. - OT ordered, eval and treat. - Monitor for fever, afebrile at this time. - Control nausea, Zofran PRN available. 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 [place] PO PRN per pain sclae. - Monitor for BM post surgery. Dulcolax suppository PRN constipation. - HH ordered for tomorrow. Follow. Asthma, chronic: Continue home inhalers. Place on albuterol nebs PRN shortness of breath. Supplemental O2 to keep sats >92%. Hypertension, chronic: Continue home medications, Amiloride/HCTZ 1 tab PO BID, and Verapamil. Monitor BP closely. BPH: Continue home Tamsulosin. DVT prophylaxis: SCDs/Xarelto. April Gutiérrez MD Jul 14, 2017 14:50
[2017-07-14 16:00] VITALS: BP 117/70; PULSE 68; RESP 18; TEMP 99; O2SAT 94
[2017-07-14 18:55] LABS: BLOOD, URINE NEG (NEG); GLUCOSE,URINE NEG (NEG); KETONE, URINE NEG (NEG); NITRITE,URINE NEG (NEG); PH, URINE 7.5 (5.0-8.5); URINE COLOR LIGHT-YELLOW (YELLW/STRAW)
[2017-07-14 19:02] LABS: COMMENT (UR) CULT NOT INDICATED; CULTURE IF INDICATED CULT NOT INDICATED
[2017-07-14] MEDS: clonazePAM 0.5 MG TAB PO SCH (20:43)
[2017-07-14] MEDS: PRAVASTATIN SOD 40 MG TAB PO SCH (20:43)
[2017-07-14] MEDS: MONTELUKAST SODIUM 10 MG TAB PO SCH (20:44)
[2017-07-14 21:15] VITALS: BP 123/58; PULSE 66; RESP 18; TEMP 100.2; O2SAT 93
[2017-07-15] VITALS: BP 114/76; PULSE 90; RESP 18; TEMP 96.8; O2SAT 95
[2017-07-15] MEDS: DEXT 5%-NACL 0.45% 1000 ML INJ 1,000 ML IV SCH ×2 (02:36→13:49)
[2017-07-15] MEDS: PCA - TOTAL MG MORPHINE DELIVERED PER SHIFT SCH ×2 (05:59→14:00)
[2017-07-15 08:00] VITALS: BP 140/68; PULSE 70; RESP 18; TEMP 97; O2SAT 93
--- NOTE | 2017-07-15 08:32 | PD.ORT.PN ---
Subjective Post Op Day #: 2 Subjective Remarks He is doing well. He indicates that he will be going to a SNF for rehab. Distance Walked 200 feet. Objective Vitals Vital Signs Date Time Temp Pulse Resp B/P (MAP) Pulse Ox O2 Delivery O2 Flow Rate FiO2 07/15/17 05:59 18 07/15/17 00:50 Room Air 07/15/17 00:00 96.8 90 18 114/76 (89) 95 07/14/17 22:00 18 07/14/17 21:43 18 07/14/17 21:15 100.2 66 18 123/58 (79) 93 07/14/17 16:00 99.0 68 18 117/70 (86) 94 07/14/17 12:00 97.1 76 18 130/70 (90) 93 07/14/17 09:25 96 21 I/O 07/14/17 07/14/17 07/14/17 07/15/17 07/15/17 07/15/17 07:00 15:00 23:00 07:00 15:00 23:00 Intake Total 480 ml 650 ml 240 ml 240 ml Output Total 850 ml Balance -370 ml 650 ml 240 ml 240 ml Intake Oral 480 ml 650 ml 240 ml 240 ml Output Urine Total 850 ml # Voids 4 3 2 # Bowel Movements 0 0 0 0 Result Diagram: 07/14/1761607/14/17 0617 Objective Remarks He is resting comfortably, supine in bed. The neurovascular status is intact. The dressing is dry and intact. Assessment & Plan Ortho Post Op Day #: 2 Problem List: Assessment and Plan Continue postop care and PT/OT. Discharge per Dr. Hernandes. Jem Howell MD ([place]) Jul 15, 2017 08:32
[2017-07-15] MEDS: TAMSULOSIN HCL 0.4 MG CAP PO SCH (09:00)
[2017-07-15] MEDS: BUDESONIDE-FORMOTEROL 160/4.5 MCG INHALER INH SCH (09:00)
[2017-07-15] MEDS: VERAPAMIL HCL 240 MG SUSTAINED RELEASE TAB PO SCH (09:00)
[2017-07-15] MEDS: PANTOPRAZOLE SOD 20 MG DELAYED RELEASE TAB PO SCH (09:00)
[2017-07-15] MEDS ORDERED: MAGNESIUM HYDROXIDE SUSP 30 ML CUP PO SCH (09:00)
[2017-07-15] MEDS: aMILoride/HCTZ 5 MG/50 MG TAB PO SCH (09:00)
[2017-07-15] MEDS: SODIUM CHLORIDE 0.9% FLUSH 5 ML FLUSH IVF SCH (09:00)
[2017-07-15 12:00] VITALS: BP 140/64; PULSE 67; RESP 18; TEMP 97; O2SAT 97
[2017-07-15] MEDS ORDERED: MAGNESIUM CITRATE SOLN 300 ML BTL PO ONE (12:00)
[2017-07-15] MEDS: RIVAROXABAN 10 MG TAB PO SCH (14:00)
--- NOTE | 2017-07-15 14:36 | HHI.PR ---
Subjective Remarks in no acute distress. pain is controlled. had mild nausea earlier which has resolved. no other complaints. Objective Vitals Vital Signs Date Time Temp Pulse Resp B/P (MAP) Pulse Ox O2 Delivery O2 Flow Rate FiO2 07/15/17 12:00 97.0 67 18 140/64 (89) 97 07/15/17 08:00 97.0 70 18 140/68 (92) 93 07/15/17 05:59 18 07/15/17 00:50 Room Air 07/15/17 00:00 96.8 90 18 114/76 (89) 95 07/14/17 22:00 18 07/14/17 21:43 18 07/14/17 21:15 100.2 66 18 123/58 (79) 93 07/14/17 16:00 99.0 68 18 117/70 (86) 94 I/O 07/14/17 07/14/17 07/14/17 07/15/17 07/15/17 07/15/17 07:00 15:00 23:00 07:00 15:00 23:00 Intake Total 480 ml 650 ml 240 ml 240 ml Output Total 850 ml Balance -370 ml 650 ml 240 ml 240 ml Intake Oral 480 ml 650 ml 240 ml 240 ml Output Urine Total 850 ml # Voids 4 3 2 # Bowel Movements 0 0 0 0 Result Diagram: 07/14/17 0617 07/14/17 0617 Imaging Last Impressions Shoulder X-Ray 07/12/17 0000 Signed Impressions: Service Date/Time: Wednesday, July 12, 2017 14:05 - CONCLUSION: Anatomic alignment without fracture. Zack Mtz MD FACR Objective Remarks GENERAL: This is a well-nourished, well-developed patient, in no apparent distress. CARDIOVASCULAR: Regular rate and regular rhythm without murmurs, gallops, or rubs. RESPIRATORY: Clear to auscultation. Breath sounds equal bilaterally. No wheezes , rales, or rhonchi. GASTROINTESTINAL: Abdomen soft, non-tender, nondistended. Normal, active bowel sounds MUSCULOSKELETAL: right shoulder in sling. NEURO: Alert & Oriented x4 to person, place, time, situation. Moves all ext x4 Medications and IVs Current Medications Povidone Iodine (Betadine 7.5% Scrub) 1 applic ONCE TOPICAL ; Start 07/12/17 at 06:30; Stop 07/15/17 at 06:29; Status DC Cefazolin Sodium/ Dextrose 50 ml @ 100 mls/hr ALLIED HEALTH TEACHER IV Last administered on 07/12/17 08:09; Start 07/12/17 at 06:30; Stop 07/15/17 at 06:29; Status DC Tranexamic Acid 1000 mg/Sodium Chloride 110 ml @ 220 mls/hr ONCE IV Last administered on 07/12/17 08:22; Start 07/12/17 at 06:30; Stop 07/12/17 at 12:30 ; Status DC Tranexamic Acid 1000 mg/Sodium Chloride 110 ml @ 220 mls/hr ONCE IV Last administered on 07/12/17 11:36; Start 07/12/17 at 09:30; Stop 07/12/17 at 15:30 ; Status DC Lactated Ringer's 1,000 ml @ 30 mls/hr Q24H PRN IV SEE LABEL COMMENTS; Start at 06:30; Stop 07/15/17 at 06:29; Status DC Sodium Chloride 500 ml @ 30 mls/hr [id number] PRN IV SEE LABEL COMMENTS; Start at 06:30; Stop 07/15/17 at 06:29; Status DC Metoprolol Tartrate (Lopressor) 25 mg ALLIED HEALTH TEACHER PRN PO SEE LABEL COMMENTS; Start 07/12/17 at 06:30; Stop 07/15/17 at 06:29; Status DC Povidone Iodine (Betadine 5% Antisepsis Kit) 1 applic [employer]IED HEALTH TEACHER PRN EACH NARE SEE LABEL COMMENTS Last administered on 07/12/17 08:05; Start 07/12/17 at 06:30 ; Stop 07/15/17 at 06:29; Status DC Chlorhexidine Gluconate (Chlorhexidine 2% Cloth) 3 pack [employer]IED HEALTH TE[employer]ER PRN TOPICAL SEE LABEL COMMENTS Last administered on 07/12/17 07:51; Start 07/12/17 at 06:30 ; Stop 07/15/17 at 06:29; Status DC Insulin Human Regular (NovoLIN R INJ) See Protocol Table ... ALLIED HEALTH TEACHER PRN SQ SEE PROTOCOL TABLE; Start 07/12/17 at 06:30; Stop 07/15/17 at 06:29; Status DC Cefazolin Sodium (Ancef Inj) 2,000 mg STK-MED ONCE .ROUTE Last administered on 07/12/17 11:10; Start 07/12/17 at 09:19; Stop 07/12/17 at 09:20; Status DC Cefazolin Sodium 1000 mg/Sodium Chloride 100 ml @ 200 mls/hr ONCE ONCE IV Last administered on 07/12/17 12:32; Start 07/12/17 at 13:00; Stop 07/12/17 at 13:29; Status DC Morphine Sulfate (*morphine INJ PERIprocedure ONLY) 8 mg STK-MED ONCE .ROUTE Last administered on 07/12/17 13:52; Start 07/12/17 at 13:52; Stop 07/12/17 at 13:53; Status DC Dextrose/Sodium Chloride 1,000 ml @ 125 mls/hr Q8H IV Last administered on 21:37; Start 07/12/17 at 13:49 IV Flush (NS Flush) 2 ml UNSCH PRN IVF FLUSH AFTER USING IV ACCESS; Start 07/12 at 14:00 IV Flush (NS Flush) 2 ml BID IVF Last administered on 07/15/17 09:00; Start at 21:00 Cefazolin Sodium 1000 mg/Sodium Chloride 100 ml @ 200 mls/hr Q6H IV Last administered on 07/13/17 06:10; Start 07/12/17 at 18:00; Stop 07/13/17 at 06:29 ; Status DC Miscellaneous Information (Post-op Orders (for Pharmacy)) STAT ONCE XX ; Start 07/12/17 at 14:00; Stop 07/12/17 at 15:21; Status DC Rivaroxaban (Xarelto) 10 mg Q24H PO Last administered on 07/14/17 14:00; Start 07/13/17 at 14:00 Miscellaneous Medication ([facility] Information) ONCE ONCE XX ; Start at 14:00; Stop 07/12/17 at 15:24; Status DC Acetaminophen/ Hydrocodone Bitart (Onamia 5-325 Mg) 1 tab Q4H PRN PO PAIN LESS THAN 5 ON SCALE; Start 07/12/17 at 14:00 Acetaminophen/ Hydrocodone Bitart (Onamia 5-325 Mg) 2 tab Q4H PRN PO PAIN SCALE 5 TO 10; Start 07/12/17 at 14:00 Acetaminophen (Tylenol) 650 mg Q6H PRN PO PAIN LESS THAN 5 ON SCALE Last administered on 07/14/17 20:43; Start 07/12/17 at 14:00 Ondansetron HCl (Zofran Inj) 4 mg Q6H PRN IVP NAUSEA OR VOMITING Last administered on 07/13/17 15:44; Start 07/12/17 at 14:00 Zolpidem Tartrate (Ambien) 5 mg HS PRN PO SLEEP; Start 07/12/17 at 14:00 Bisacodyl (Dulcolax Supp) 10 mg DAILY PRN RECTAL CONSTIPATION Last administered on 07/15/17 04:52; Start 07/12/17 at 14:00 Naloxone HCl (Narcan Inj) 0.4 mg UNSCH PRN IV RESPIRATORY RATE LESS THAN 10; Start 07/12/17 at 14:00 Morphine Sulfate (Morphine 1 Mg/ ml HAND LAUNDERER) 30 mg UNSCH IV Last administered on 15:47; Start 07/12/17 at 14:00; Stop 07/14/17 at 13:59; Status DC HAND LAUNDERER Dosage Infused (Pha) 1 Q8HR .XX Last administered on 07/15/17 05:59; Start 07/12/17 at 14:00 Miscellaneous Information ALL NURSING DEPARTME... UNSCH PRN .XX SEE LABEL COMMENTS; Start 07/12/17 at 13:46; Stop 07/13/17 at 13:45; Status DC Albuterol Sulfate (Ventolin Hfa Inh) 2 puff BID PRN INH SHORTNESS OF BREATH; Start 07/12/17 at 18:45 Amiloride/HCTZ (Moduretic 5-50 Mg) 1 tab BID PO Last administered on 07/15/17 09:00; Start 07/12/17 at 21:00 Meclizine HCl (Antivert) 25 mg TID PRN PO VERTIGO; Start 07/12/17 at 18:00 Montelukast Sodium (Singulair) 10 mg HS PO Last administered on 07/14/17 20:44 ; Start 07/12/17 at 21:00 Tamsulosin HCl (Flomax) 0.4 mg BID PO Last administered on 07/15/17 09:00; Start 07/12/17 at 21:00 Verapamil HCl (Isoptin Sr) 240 mg DAILY PO Last administered on 07/15/17 09: 00; Start 07/13/17 at 09:00 Budesonide/ Formoterol Fumarate (Symbicort 160-4.5 Inh) 2 puff BID INH Last administered on 07/15/17 09:00; Start 07/12/17 at 21:00 Pantoprazole Sodium (Protonix) 20 mg DAILY PO Last administered on 07/15/17 09 :00; Start 07/13/17 at 09:00 Pravastatin Sodium (Pravachol) 40 mg HS PO Last administered on 07/14/17 20:43 ; Start 07/12/17 at 21:00 Clonazepam (KlonoPIN) 0.5 mg HS PO Last administered on 07/14/17 20:43; Start 07/12/17 at 21:00 Albuterol Sulfate (Albuterol Neb) 2.5 mg Q4HR NEB PRN NEB WHEEZING; Start 07/12 at 18:00 Al Hydrox/Mg Hydrox/Simethicone (Mag-Al Plus Susp Liq) 30 ml Q6H PRN PO heart burn Last administered on 07/13/17 11:46; Start 07/13/17 at 11:00 Magnesium Hydroxide (Milk Of Magnesia Liq) 30 ml BID PO ; Start 07/15/17 at 09: 00 Magnesium Citrate (Citroma Liq) 300 ml ONCE ONCE PO Last administered on 12:37; Start 07/15/17 at 12:00; Stop 07/15/17 at 12:01; Status DC A/P Assessment and Plan 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 - OT ordered, eval and treat. - Monitor for fever, afebrile at this time. - Control nausea, Zofran PRN available. - Control PRN, Morphine IV HAND LAUNDERER. Onamia PO PRN per pain sclae. Asthma, chronic: Continue home inhalers. Place on albuterol nebs PRN shortness of breath. Supplemental O2 to keep sats >92%. Hypertension, chronic: Continue home medications, Amiloride/HCTZ 1 tab PO BID, and Verapamil. Monitor BP closely. BPH: Continue home Tamsulosin. DVT prophylaxis: SCDs/Xarelto. Jeremías Avery MD Jul 15, 2017 14:35
--- NOTE | 2017-07-19 07:51 | MD ---
cc: JOE HERNANDES ROXY ADMISSION DATE: 07/12/2017 DISCHARGE DATE: 07/15/2017 ADMITTING DIAGNOSIS 1. Severe osteoarthritis of the right glenohumeral joint. 2. Partial-thickness rotator cuff tear, right shoulder. 3. Pain, right shoulder. 4. Co-morbidities including asthma, hypertension, elevated cholesterol and psoriasis. DISCHARGE DIET 1. Severe osteoarthritis of the right glenohumeral joint. 2. Partial-thickness rotator cuff tear, right shoulder. 3. Pain, right shoulder. 4. Co-morbidities including asthma, hypertension, elevated cholesterol and psoriasis. HISTORY An 82-year-old white male with a lengthy history of right shoulder pain dating back to 1956 when he sustained trauma to the shoulder secondary to baseball activity. He did not seek any evaluation or treatment at that time but continued to have difficulty about the shoulder area for which he did subsequently undergo orthopedic evaluation and was encouraged to conform to a rehabilitation program. Approximately one year following the injury he sustained a dislocation of his right shoulder secondary to participation in football. The shoulder was manipulated by his career coach and over the following years he experienced several recurrent dislocations that resulted in him undergoing operative intervention in approximately 1982 as completed at [facility] in [place], [place]. The patient is uncertain with regards to the actual procedure completed but did note no further dislocations occurred. He did reasonably well for a number of years thereafter until the past two or more years when he began to note a catching sensation about the shoulder area associated with pain that became more pronounced with the passage of time. He was taking Naprosyn as prescribed by his primary care physician and did undergo orthopedic evaluation with the undersigned physician in November 2014. At that time his x-ray studies revealed obvious degenerative change with near [id number] apposition about the glenohumeral joint for which findings and treatment options were reviewed. At that time the patient not feel he was in need of operative intervention and elected to continue with conservative management while being followed on an outpatient basis. He did undergo a course of physical therapy that he found to show some limited benefit, although being aware of lingering soreness about the shoulder area. He continued to utilize Naprosyn as well as Aspercreme and Biofreeze. He returned to the office in May of this year reporting that with the passage of time he is becoming progressively more symptomatic with pain about the shoulder area. He had undergone a CT scan evaluation which identified moderate to severe glenohumeral joint osteoarthritis and a small partial-thickness tear involving the anterior portion of the subscapularis tendon. The patient was having difficulty conforming to all activities of daily living as related to his shoulder symptoms, especially when trying to use the toilet. He felt he had arrived at a point in time where he was ready to consider a more definitive course of treatment, thus the involvement of a reverse shoulder arthroplasty was outlined in detail for which the patient indicated his full understanding and expressed his desire to proceed accordingly. In compliance with his wishes he was scheduled for admission at this time in order that the above be accomplished. His physical examination at that time of admission revealed mild tenderness about the superior and anterior aspect of the right shoulder with limited mobility in all ranges assessed and pain at the extremes of motion, the patient being unable to elevate his hand above his head level. Forward flexion was limited to no more than 45 degrees, extension 30 degrees, internal rotation to lateral waist level. Cross-arm positioning of right hand onto the left shoulder was limited at the inferior aspect of the shoulder joint. Pain with passive manipulation of the right shoulder with obvious crepitation elicited in the 30-45 degree range of abduction maneuvering. Drop arm test positive. Lead Person strength intact. Sensory intact. HOSPITAL COURSE Prior to admission to the hospital the patient had undergone medical evaluation and clearance for surgery as completed by his primary care physician, Dr. Awa Greenwood. He was taken to the operating room on 12 July 2017 and on that date underwent a right reverse shoulder arthroplasty completed in an uncomplicated manner. The patient was noted to have tolerated his operative procedure well. His postoperative course was stable thereafter. Hemoglobin and hematocrit assessment postoperatively was 13.3 and 39.0 respectively. The patient was progressively mobilized under the guidance of physical therapy regarding mobilization about the shoulder area. Follow-up examination of the surgical wound noted it be intact, healing favorably with no evidence of infection. Medical follow-up per Dr. Greenwood. Slot Router was consulted to assist with discharge planning. The patient had expressed his desire for rehab placement to continue with his mobilization process. Pending medical clearance and finalization of plans per the Social Service Department he was scheduled for transfer on the third postoperative day at which time he was noted to be in a stable condition. He was scheduled to be seen in office follow-up in approximately four weeks. Prognosis favorable. DISCHARGE MEDICATIONS 1. Hydrocodone 5/325, #60. 2. Aspirin 325 mg, one tab twice daily for 3 weeks, #40. Joe Hernandes MD NBS/BT /7:50 AM /7:28 AM
== END 2017-07-15 16:32 | DRG 483 ==
LOC: HSDI 05:53 → N06A 15:16
PROVIDERS: ADMIT Orthopaedic Surgery; ATTEND Orthopaedic Surgery
PROC: 0RRJ00Z Replacement of Right Shoulder Joint with Reverse Ball and Socket Synthetic Substitute, Open Approach (ICD-10-PCS; principal; 2017-07-12 09:50)
DX: M19.011 Primary osteoarthritis, right shoulder (principal); I10 Essential (primary) hypertension; E78.5 Hyperlipidemia, unspecified; J45.909 Unspecified asthma, uncomplicated; K21.9 Gastro-esophageal reflux disease without esophagitis; N40.0 Benign prostatic hyperplasia without lower urinary tract symptoms; L40.9 Psoriasis, unspecified
CPT/HCPCS: 73020; 80048; 81001; 85007; 85014; 85018; 85027; 88305; 88311; 94150; C1776; C9290; J0690; J2270; J2370; J2405; J2710; J3010; J7050; J7120